=== PATIENT | female | born 1995 | race Caucasian/White ===

== ENCOUNTER 2025-04-25 00:58 | Emergency (ER) | payer OTHER ==
[~2025-04-25] VITALS: Ht 154.9 cm; Wt 81.8 kg
[~2025-04-25 00:58] MED LIST: DOCU50LI36 PO; HYDR-4061 PO; birth control PO
[2025-04-25 01:03] VITALS: TEMP 98.4
[2025-04-25] MEDS: PERTUSS(ACELL),DIPH,TET/PF 0.5 ML SYRINGE [ADULT] IM. ONE (03:08)
[2025-04-25] MEDS: LIDOCAINE 1% 10 ML VIAL SQ ONE (03:10)
[2025-04-25 03:30] VITALS: BP 133/84; PULSE 86; RESP 16; O2SAT 100
[2025-04-25] MEDS ORDERED: CEPH-558 PO (04:42)
== END 2025-04-25 05:08 | disposition home or self-care (01) ==
LOC: EMS 00:59
DX: S01.112A Laceration without foreign body of left eyelid and periocular area, initial encounter (principal); X58.XXXA Exposure to other specified factors, initial encounter; Y93.89 Activity, other specified; Y92.89 Other specified places as the place of occurrence of the external cause; Y99.8 Other external cause status
CPT/HCPCS: 99283; 90715; 90471; 12011; J3490; 99284

== ENCOUNTER 2025-05-05 11:03 | Emergency (ER) | payer OTHER ==
[~2025-05-05] VITALS: Ht 154.9 cm; Wt 84.1 kg
[~2025-05-05 11:03] MED LIST changes: +CEPH-558 PO; -DOCU50LI36 PO; -HYDR-4061 PO; -birth control PO
[2025-05-05 11:16] VITALS: BP 104/58; PULSE 60; RESP 18; TEMP 97.5; O2SAT 96
[2025-05-05] MEDS: BACITRACIN 0.9 GM PACKET OINTMENT TP ONE (14:03)
== END 2025-05-05 14:17 | disposition home or self-care (01) ==
LOC: EMS 11:03
DX: S01.112D Laceration without foreign body of left eyelid and periocular area, subsequent encounter (principal); X58.XXXD Exposure to other specified factors, subsequent encounter
CPT/HCPCS: 99282; Z7502; Z7610